=== PATIENT | male | born 1950 | race Caucasian/White ===

== ENCOUNTER 2016-06-18 09:51 | Inpatient (IN) | payer OTHER ==
[~2016-06-18] VITALS: Ht 177.8 cm; Wt 108.0 kg
--- NOTE | ~2016-06-18 | HC ---
[facility] [place] [address] CONSULTATION Name: MARLOMARZENA Michael Room #: 433-I ADM IN ..#: [id number] Admission: 06/18/16 Attend Phys: Alfonzo Melton MD Discharge: Date of : 48 Report #: [id number] THIS REPORT FOR: //name// CC: Spike Melton CHIEF COMPLAINT: Left foot gangrene. HISTORY OF PRESENT ILLNESS: This is a 65-year-old gentleman with a history of prior toe amputations, brought to the emergency room on 06/18/2016, with infection of his left foot and leg. He apparently was also debilitated, unable to stand due to the infection, pain and weakness. PAST MEDICAL HISTORY: Significant for diabetes, peripheral neuropathy, hypertension, osteomyelitis, and left great toe amputation in 2007, left second toe amputation in 2007 as well, and sepsis at that time as well. MEDICATIONS: Glipizide, fenofibrate, lisinopril, and simvastatin. ALLERGIES: None. SOCIAL HISTORY: Significant for alcohol use. PHYSICAL EXAMINATION: GENERAL: Awake, alert, in no apparent distress. VITAL SIGNS: Note today, temperature of 98.5, pulse is 84, respiratory rate is 18, and blood pressure is 120/53. EXTREMITIES: Examination of the patient's left lower extremity notes extensive blistering at the posterior aspect of the patient's leg extending past the mid calf. He has multiple wounds about his hindfoot, from 2 of the wounds. There is a severe malodorous smell. X-rays and MRI reviewed noting osteomyelitis of the heel. IMPRESSION: Gangrene left foot and leg. PLAN: The options were discussed at length with the patient, do not fell there is a good level for a dsipo-atu-xbdg amputation, therefore we will have him scheduled for an bdmpc-dcl-awis amputation to proceed sometime tomorrow when he is medically tuned-up some. Today, his hemoglobin is 6.9 and white count is 6.1, he did have a sedimentation rate of 130. As such, we will schedule him for the iejrz-iwz-raoe amputation to be performed on 06/20/2016. [facility] [address] [place] [address] CONSULTATION Name: MARLOMARZENA P Room #: 433-I ADM IN ..#: [id number] Admission: 06/18/16 Attend Phys: Alfonzo Melton MD Discharge: Date of : 48 Report #: [id number] Thank you for allowing me to participate in the care of this pleasant patient. <ELECTRONICALLY SIGNED> By: Wagner Cunningham MD 06/20/16 1107 0815 0981 Wagner Cunningham MD /nt
--- NOTE | ~2016-06-18 | EKG ---
[address] [address] ELECTROCARDIOGRAM REPORT Name: MARZENA SELLERS Room #: 433-I ADM IN M.R.#: [id number] Admission: 06/18/16 Attend Phys: Alfonzo Melton MD Discharge: Date of : 48 Report #: [id number] THIS REPORT FOR: //name// [facility] Test Date: 2016-06-18 Test Time: 18:04:23 Pat Name: MARZENA SELLERS Department: Room: 433 I Gender: M Inside Sales Consultant: Dileep DOZIER : 1950 Requested By: Torin Krause Order Number: [id number] MD: Justen Esparza Measurements Intervals [place] Rate: 93 P: 34 MT: 169 QRS: -78 QRSD: 118 T: 80 QT: 379 QTc: 472 Interpretive Statements Sinus rhythm Incomplete RBBB and LAFB No previous ECG available for comparison Electronically Signed On 06-19-2016 8:40:13 CDT by Justen Esparza [email or web address] <ELECTRONICALLY SIGNED> By: Justen Esparza MD, [facility] 06/19/16 0840 D: [id number] Justen Esparza MD, FACC /EPI
--- NOTE | ~2016-06-18 | S ---
[facility] [place] [address] SURGICAL PATH RPT PROCEDURE Name: MARZENA SELLERS Room #: 436-P ADM IN M.R.#: [id number] Admission: 06/18/16 Date of : 48 Discharge: Report #: [id number] Path Case #: [id number] PATHOLOGY REPORT COLLECTION DATE: 06/20/2016 RECEIVED DATE: 06/20/2016 SUBMITTING PHYS: Dr. Wagner Cunningham OTHER PHYS: Dr. Alfonzo Jones SPECIMEN(S) RECEIVED: A.Left above knee amputation * * * * * * * * * * * * FINAL DIAGNOSIS: Leg, "left above knee amputation": - Extensive epidermal ulceration with necrotic acute inflammatory exudate forming microabscesses with gangrenous necrosis and with fat necrosis. - A section of the bone reveals acute osteomyelitis, however not present at the black ink. - Section A2 listed as perpendicular section of posterior soft tissue resection margin also reveals focal areas of acute inflammation with microabscess. - Sections from the vessel reveals atherosclerotic narrowing. (KAY:; d/t: 06/26/16) PATHOLOGIST: Eros Chavarria M.D. REPORT ELECTRONICALLY SIGNED BY: Eros Chavarria M.D. DATE/TIME: 06/26/2016 14:32 * * * * * * * * * * * * GROSS PATHOLOGY: The specimen is received fresh, labeled "Skioreleft kylup-pzx-bpxc amputation" and ixnzd-ycz-joph amputation with attached foot, excluding the great toe and second toe. The leg measures 61.3 cm in length and ranges in diameter from 6.2 cm up to 14.5 cm. The attached foot measures 23.7 x 8.2 x 6.2 cm. The chase white skin displays a significant sloughing on the anterior and posterior leg and several necrotic ulcerations. There necrotic soft tissue at the posterior soft tissue margin. The most proximal ulceration measures 2.5 x 1.0 cm. The ulceration is 2.2 cm from the soft tissue resection margin and 11.7 cm from the flat femur resection margin. The second ulceration is on the posterior leg, superior to the ankle, and measures 10 x 7.5 cm. The third ulceration measures 9 x 9.4 cm and involves the plantar heel [place] [address] SURGICAL PATH RPT PROCEDURE Name: MARZENA SELLERS Room #: 436-P ADM IN ..#: [id number] Admission: 06/18/16 Date of : 48 Discharge: Report #: [id number] Path Case #: [id number] aspect of the ankle. The fourth ulceration is on the lateral aspect of the mid foot and measures 5 x 2.5 cm. The fourth ulceration is on the dorsal surface of the distal foot and measures 3.7 x 1.7 cm. There is a well-healed linear scar at the previous toe amputation site. The most distal ulceration is on the lateral plantar surface of the distal foot and measures 1.7 x 1.0 cm. Sectioning through the specimen reveals multifocal edema and significant necrosis of the soft tissue underlying the ulcerations. The bone has a pink to dark red hemorrhagic appearance and sectioning along the vasculature reveals predominantly patent lumens. Section code: A1-neurovascular bundle, A2-perpendicular sections of posterior soft tissue resection margin, A3 through A5-represent sections adjacent to ulcerations from proximal to distal A6-international sales representative sections of bone adjacent to heal, submitted after decal. (DRL; 06/25/2016) CLINICAL HISTORY: Gangrene. INITIAL CPT CODE(S): A; 31151, 97583 Professional services performed by [facility] at [facility] [address], [place] [address] Technical services performed by [facility] at [address] [place] [address], [address], [place] [address]. [facility] [address] [place] [address] PHONE: [phone] DIRECTOR: Hemant Mckeon M.D. * * * END OF REPORT * * *
--- NOTE | ~2016-06-18 | HC ---
[facility] [place] [address] CONSULTATION Name: MARLOMARZENA Michael Room #: 436-P [facility] IN ..#: [id number] Admission: 06/18/16 Attend Phys: Spike Case MD Discharge: 06/30/16 Date of : 48 Report #: [id number] THIS REPORT FOR: //name// CC: Spike Melton DATE OF SERVICE: 06/21/2016 HISTORY OF PRESENT ILLNESS: The patient is a 65-year-old male with history of diabetes mellitus type 2 and bilateral toe amputations, admitted with a left diabetic foot wound with gangrene. He ended up undergoing a left above-knee amputation on 06/20. He has been placed on IV Unasyn. Infectious disease is involved and we are seeing him in rehabilitation medicine consultation. His diabetes is being closely monitored. Hemoglobin A1c 7.9%. We are seeing him in rehabilitation medicine consultation. PAST MEDICAL HISTORY: Includes chronic kidney disease stage 3, hypertension, elevated lipids and reported history of alcoholism, although no withdrawal was noted. MEDICATIONS: Please see the full medication listing. FAMILY HISTORY: Noncontributory. HABITS: As noted above. No history of tobacco abuse. Apparently, he has a history of ETOH usage. SOCIAL HISTORY: He lives in a house alone, ranch style. The home is apparently tight, without a lot of room to accommodate a wheelchair. He does have multiple siblings that live locally, although none are within closer than 20 minutes. Upon my discussion with 2 of his siblings, it does not sound like the patient will be able to stay with any of these siblings temporarily. The patient premorbidly was ambulatory without gait aids and indicated that a few weeks prior to this event, he was not needing to use a cane. REVIEW OF SYSTEMS: Did not offer any current complaints of chest pain, shortness of breath or abdominal discomfort. He does have a history of numbness of both lower extremities. Some left residual limb discomfort, as expected. PHYSICAL EXAMINATION: GENERAL: On examination, an overweight 65-year-old white male, in no obvious distress. VITAL SIGNS: Last recorded temperature is 98.3, pulse 87, respirations 22 and blood pressure 152/86. NEUROLOGIC: The patient is alert, a little confused, but does follow basic 1-step commands. He does have exogenous obesity. Functional range of motion of [facility] [address] [place] [address] CONSULTATION Name: MARZENA SELLERS Room #: 436-P [facility] IN .R.#: [id number] Admission: 06/18/16 Attend Phys: Spike Case MD Discharge: 06/30/16 Date of : 48 Report #: [id number] both upper extremities. Strength is grade 4-/5. DTRs are trace to 1. In the lower extremities, right lower extremity strength is a grade 4- to 3+/5. DTRs are trace to 1. He does have decreased distal sensation in a stocking distribution with decreased proprioception of his toes. He has already had the old right large toe amputation. Left lower extremity reveals the left above-knee amputation, which is dressed. ASSESSMENT: A 65-year-old white male with the following problem list: 1. Left above-knee amputation, 06/20. 2. Diabetic peripheral neuropathy. 3. Functional mobility and ADL deficits. 4. Chronic kidney disease stage 3. 5. Exogenous obesity. 6. Hypertension. 7. Elevated lipids. PLAN: PT and OT will evaluate. In occupational therapy orders are added. There was limited social support, as noted above. We will be glad to follow along with you regarding his rehab therapy needs. <ELECTRONICALLY SIGNED> By: Larry Colón MD 07/03/16 1518 1214 1452 Larry Colón MD /nt
--- NOTE | ~2016-06-18 | HC ---
[facility] [place] [address] CONSULTATION Name: MARZENA SELLERS Michael Room #: 433-I ADM IN .R.#: [id number] Admission: 06/18/16 Attend Phys: Alfonzo Melton MD Discharge: Date of : 48 Report #: [id number] THIS REPORT FOR: //name// CC: Spike Melton REASON FOR CONSULTATION: I was asked to evaluate concerning diabetic left foot infection. HISTORY OF PRESENT ILLNESS: The patient is a 65-year-old with diabetes, several amputations of his toes. He has had chronic wound to his left heel. This has worsened significantly along with increased pain and blistering. Foul odor of the drainage. Along with this, he has been anorexic, presented to the Emergency Room and asked for further assistance with his care. PAST MEDICAL HISTORY: Diabetes, peripheral neuropathy, hypertension, right ankle osteomyelitis, status post debridement, several amputations of his toes. ALLERGIES: None known. MEDICATIONS: As noted on his MAR, now on vancomycin and Zosyn. FAMILY HISTORY: Noncontributory. SOCIAL HISTORY: Nonsmoker, no significant alcohol intake. REVIEW OF SYSTEMS: No cough, sputum, nausea, vomiting or diarrhea. No dysuria or frequency. PHYSICAL EXAMINATION: VITAL SIGNS: Afebrile and hemodynamically stable. GENERAL: He was alert and cooperative. His left upper extremity IV was leaking and there was a fair amount of blood in his bed. He was pale. Appeared sick. HEENT: Unremarkable. CHEST: Clear. HEART: Regular. ABDOMEN: Soft and nontender. There is a foul odor in the room. EXTREMITIES: He had seropurulent drainage from his left foot including tissue necrosis and wounds involving the posterior foot along the lateral aspect as well. He had 2+ edema throughout the left leg. There was erythema extending from the foot up to the lower leg. Sensation was diminished. LABORATORY STUDIES: Hemoglobin 8, white count 11.2 with 26% bands, platelet count was 424,000. Sedimentation 130, sodium 134, potassium 4.1, bicarbonate of 19, creatinine 1.7. X-ray of the foot, large plantar heel wound with extensive soft tissue gas throughout the foot, ankle and distal lower extremity. [address] [address] CONSULTATION Name: MARZENA SELLERS Room #: 433-I ADM IN [facility].#: [id number] Admission: 06/18/16 Attend Phys: Alfonzo Melton MD Discharge: Date of : 48 Report #: [id number] IMPRESSION: A 65-year-old diabetic with gangrene in his left foot. I expect that this will require below-knee amputation. We will ask for surgical opinion. Obtain arterial Dopplers of his lower extremity and electrocardiogram, chest x-ray. Keep him n.p.o. for now, control blood sugars. <ELECTRONICALLY SIGNED> By: Torin Krause MD 06/19/16 1729 1451 2229 Torin Krause MD /adolfo
--- NOTE | ~2016-06-18 | H ---
[facility] [place] [address] HISTORY AND PHYSICAL Name: MARZENA SELLERS Room #: 436-P ADM IN M.R.#: [id number] Admission: 06/18/16 Attend Phys: Alfonzo Melton MD Discharge: Date of : 48 Report #: [id number] THIS REPORT FOR: //name// CC: Spike Melton DATE OF SERVICE: 06/18/2016 The patient is admitted to the hospital on June 18. CHIEF COMPLAINT: Left foot infection. HISTORY OF PRESENT ILLNESS: The patient is a 65-year-old man with history of diabetes mellitus type 2, and history of bilateral toe amputations, who had left foot blister for 1 month. It got progressively worse, that involved the entire foot. The patient came to the emergency room. X-ray was taken, that showed heel wound with gas in the soft tissue. The patient received a dose of vancomycin and Zosyn. The patient reports pain 4-5/10. He has been hemodynamically stable and afebrile. PAST MEDICAL HISTORY: 1. Diabetes mellitus type 2. 2. Hypertension. 3. Dyslipidemia. 4. Chronic kidney disease stage 3. 5. Status post bilateral toe amputations. CURRENT MEDICATIONS: Glipizide 10 mg a day, lisinopril 20 mg a day, simvastatin 20 mg a day, fenofibrate 160 mg a day, and Humalog 12-15 units after meals. FAMILY HISTORY: Reviewed and not pertinent to the patient's current condition. SOCIAL HISTORY: The patient does not smoke cigarettes and does not drink alcohol. REVIEW OF SYSTEMS: As above in HPI section, all others negative. PHYSICAL EXAMINATION: GENERAL: The patient is a middle-aged man who is in no apparent distress. VITAL SIGNS: Blood pressure is 142/75, heart rate is 91, respiration is 18, and temperature is 97.4. HEENT: Pupils are equal. Eye movements are normal. Sclerae are anicteric. NECK: Supple. Thyromegaly is not palpated. The patient has no JVD. He has no carotid bruits. CARDIOVASCULAR: The patient has regular rhythm and rate. He has no murmurs, gallops, or rubs. [facility] [address] [place] [address] HISTORY AND PHYSICAL Name: MARZENA SELLERS Room #: 436-P ADM IN .R.#: [id number] Admission: 06/18/16 Attend Phys: Alfonzo eMlton MD Discharge: Date of : 48 Report #: [id number] RESPIRATORY: Chest moves symmetrically with breathing. The patient has clear respiratory sounds bilaterally. GASTROINTESTINAL: Abdomen is soft, nondistended and nontender. Bowel sounds are normal. The patient has no hepatomegaly or splenomegaly. MUSCULOSKELETAL: Range of motion is normal. The patient has no edema, cyanosis or clubbing. NEUROLOGIC: The patient is alert and oriented x3. His examination is nonfocal. FEET: the patient has right and left toes absent. On the left heel, the patient has a large infected wound. LABS: Basic metabolic profile shows creatinine of 1.7. Random glucose is 307. Lactic acid is 2.3. CPR is 347. On CBC, white count is 11.2, hemoglobin is 8.4, hematocrit is 27.0, platelets 424. Bands 26%. As noted, left foot x-ray showed right heel wound with gas in the soft tissue. ASSESSMENT AND PLAN: 1. Left foot diabetic wound, gas gangrene. The patient is started on vancomycin and Zosyn. Infectious disease specialist and surgeon are already consulted. Consultation is very much appreciated. The patient had MRI of the left foot this morning, as well as arterial Doppler, to rule out peripheral vascular disease. Antibiotics will be continued unchanged for now. The patient will likely need surgical intervention, extent of which will be determined based on imaging studies. 2. Diabetes mellitus type 2. Suspected it is out of control, despite the patient states that blood sugars are in the normal range at home. We are checking hemoglobin A1c. We will treat the patient with basal and bolus insulin regimen. 3. Hypertension. Acceptable control. Lisinopril will be continued unchanged. 4. Anemia, chronic. Hemoglobin is 8.4, which is less than baseline. Suspect anemia of chronic disease, but I am not sure if the patient had a GI workup done. His MCV is 84. We will order stool for guaiac. 5. Chronic kidney disease stage 3, stable. The creatinine is 1.7. IV fluids will be continued, and will be reassessed. We will hold the lisinopril for now. 6. Deep venous thrombosis prophylaxis. He will use subcutaneous Lovenox. <ELECTRONICALLY SIGNED> By: Alfonzo Melton MD 06/25/16 2227 1750 1845 Alfonzo Melton MD /nt
--- NOTE | ~2016-06-18 | O ---
[facility] [place] [address] OPERATIVE REPORT Name: MARZENA SELLERS Room #: 436-P ADM IN M.R.#: [id number] Admission: 06/18/16 Attend Phys: Alfonzo Melton MD Discharge: Date of : 48 Report #: [id number] THIS REPORT FOR: //name// CC: Spike Melton DATE OF SERVICE: 06/20/2016 PREOPERATIVE DIAGNOSIS: Left leg and foot gangrene. POSTOPERATIVE DIAGNOSIS: Left leg and foot gangrene. PROCEDURE: Left above the knee amputation. SURGEON: Wagner Cunningham MD. ANESTHESIA: General. ESTIMATED BLOOD LOSS: 50 mL. DRAINS: One Hemovac drain was placed. COMPLICATIONS: There were no complications. DESCRIPTION OF PROCEDURE: The patient brought to the operating room where he was placed under general anesthesia. Once under adequate general anesthesia, his left lower extremity was prepped and draped in a sterile manner. Extremity was then approached through a fishmouth type incision about the mid to distal shaft of the femur. This was dissected down through the soft tissue to the femoral vessels which were then identified and suture ligated with 0 silk suture. Any bleeding vessels were cauterized. The nerve was then incised as well sharply with a 15 blade. Once complete, the femur was exposed entirely and both muscle flaps were retracted and the femur was transected with an oscillating saw. The distal extremity was then completely removed. The wound was irrigated copiously. Any further bleeding vessels were cauterized. A Hemovac drain was placed to the extremity and subsequently, the wound was irrigated copiously and closed with #1 Vicryl in the deep fascia, 2-0 Vicryl in the subcutaneous tissues and júnior were used for the skin. The wound was dressed with Xeroform, 4 x 4s, and a sterile soft compressive dressing was placed. There were no complications from the procedure. The patient tolerated the procedure well and went to the recovery room without incident. <ELECTRONICALLY SIGNED> By: Wagner Cunningham MD 06/22/16 0820 1112 1141 Wagner Cunningham MD /nt
[2016-06-18 09:53] VITALS: BP 102/54
[2016-06-18 10:32] LABS: HEMOGLOBIN 8.4 gm/dL (14.0-18.0); MCH 26.2 pg (26.0-34.0); MCHC 31.2 g/dL (28.0-37.0); PLATELET COUNT 424 thou/uL (150-400); RBC 3.22 mil/uL (4.50-6.00); RDW 19.1 % (10.5-14.5); WBC 11.2 thou/uL (4.0-11.0)
[2016-06-18 10:33] LABS: MANUAL DIFF YES
[2016-06-18 10:46] LABS: CALCIUM 8.8 mg/dL (8.5-10.1); CREATININE 1.7 mg/dL (0.7-1.3); POTASSIUM 4.1 mmol/L (3.5-5.1)
[2016-06-18 10:51] LABS: ALBUMIN 1.9 g/dL (3.4-5.0); TOTAL PROTEIN 6.8 g/dL (6.4-8.2)
[2016-06-18 11:01] LABS: ABSOLUTE NEUTROPHILS 10.8 thou/uL (1.4-8.2); METAMYELOCYTES 2 %; PLATELET ESTIMATE INCREASED; TOTAL CELL COUNT 100
[2016-06-18 11:02] LABS: ANISOCYTOSIS 1+; BURR CELLS 1+; TOXIC GRANULATION 2+
[2016-06-18 12:40] VITALS: BP 101/59
[2016-06-18 13:23] VITALS: BP 142/75
[2016-06-18] MEDS ORDERED: FENOFIBRATE160 MG PO (14:08)
[2016-06-18] MEDS ORDERED: GLIPIZIDE 10 MG10 MG PO (14:08)
[2016-06-18] MEDS ORDERED: LISINOPRIL20 MG PO (14:09)
[2016-06-18] MEDS ORDERED: ZOCOR20 MG PO (14:10)
[2016-06-18] MEDS ORDERED: HUMALOG100 UNIT/1 SUBQ (17:40)
[2016-06-18 20:20] VITALS: BP 105/53
[2016-06-19 04:00] VITALS: BP 120/53
[2016-06-19 05:12] LABS: GLYCOHEMOGLOBIN (HGB A1C) 7.9 % (4.8-5.6)
[2016-06-19 05:54] LABS: MCV 81.4 fL (80.0-100.0)
[2016-06-19 05:56] LABS: HEMATOCRIT 21.4 % (42.0-52.0); MCH 26.2 pg (26.0-34.0); MCHC 32.2 g/dL (28.0-37.0); RBC 2.63 mil/uL (4.50-6.00); RDW 18.5 % (10.5-14.5); WBC 6.1 thou/uL (4.0-11.0)
[2016-06-19 06:10] LABS: ALBUMIN 1.4 g/dL (3.4-5.0); CALCIUM 7.8 mg/dL (8.5-10.1); CREATININE 1.5 mg/dL (0.7-1.3); TOTAL BILIRUBIN 1.1 mg/dL (<0.1-1.0); TOTAL PROTEIN 4.9 g/dL (6.4-8.2)
[2016-06-19 06:24] LABS: PLATELET COUNT 347 thou/uL (150-400)
[2016-06-19 06:25] LABS: MANUAL DIFF YES
[2016-06-19 06:26] LABS: HEMOGLOBIN 6.9 gm/dL (14.0-18.0)
[2016-06-19 06:59] LABS: ABSOLUTE NEUTROPHILS 5.6 thou/uL (1.4-8.2); ANISOCYTOSIS 2+; MACROCYTES 1+; MICROCYTES 1+; TOTAL CELL COUNT 100
[2016-06-19 07:00] LABS: HYPOCHROMASIA 1+; TOXIC GRANULATION 2+
[2016-06-19 08:00] VITALS: BP 125/59
[2016-06-19 10:57] VITALS: BP 113/54; BP 113/68
[2016-06-19 15:36] VITALS: BP 113/68; BP 118/59
[2016-06-19 19:15] VITALS: BP 109/61
[2016-06-20 05:23] LABS: HEMATOCRIT 26.3 % (42.0-52.0); HEMOGLOBIN 8.7 gm/dL (14.0-18.0); MCH 27.1 pg (26.0-34.0); MCHC 33.2 g/dL (28.0-37.0); MCV 81.5 fL (80.0-100.0); PLATELET COUNT 299 thou/uL (150-400); RBC 3.22 mil/uL (4.50-6.00); RDW 18.3 % (10.5-14.5)
[2016-06-20 05:40] LABS: CALCIUM 7.9 mg/dL (8.5-10.1); CREATININE 1.6 mg/dL (0.7-1.3); POTASSIUM 3.4 mmol/L (3.5-5.1)
[2016-06-20 05:50] LABS: MANUAL DIFF YES
[2016-06-20 08:09] LABS: ABSOLUTE NEUTROPHILS 6.2 thou/uL (1.4-8.2); TOTAL CELL COUNT 100
[2016-06-20 08:11] LABS: ANISOCYTOSIS 1+; HYPOCHROMASIA 1+; LARGE PLATELETS FEW; OVALOCYTES FEW; POIKILOCYTOSIS SLIGHT
[2016-06-20 08:13] LABS: TOXIC GRANULATION SLIGHT
[2016-06-20 08:38] VITALS: BP 108/56
[2016-06-20 09:30] VITALS: BP 124/66
[2016-06-20 14:00] VITALS: BP 135/77
[2016-06-20 16:13] VITALS: BP 143/69
[2016-06-20 19:50] VITALS: BP 135/63
[2016-06-20 23:30] VITALS: BP 114/56
[2016-06-21 03:30] VITALS: BP 142/74
[2016-06-21 05:24] LABS: HEMATOCRIT 30.8 % (42.0-52.0); HEMOGLOBIN 10.4 gm/dL (14.0-18.0); MCH 27.8 pg (26.0-34.0); MCHC 33.7 g/dL (28.0-37.0); MCV 82.4 fL (80.0-100.0); PLATELET COUNT 316 thou/uL (150-400); RBC 3.74 mil/uL (4.50-6.00); RDW 17.6 % (10.5-14.5); WBC 9.3 thou/uL (4.0-11.0)
[2016-06-21 05:29] LABS: MANUAL DIFF YES
[2016-06-21 05:34] LABS: CALCIUM 7.6 mg/dL (8.5-10.1); CREATININE 1.2 mg/dL (0.7-1.3); POTASSIUM 3.5 mmol/L (3.5-5.1)
[2016-06-21 08:00] VITALS: BP 152/86
[2016-06-21 08:11] LABS: ABSOLUTE NEUTROPHILS 7.9 thou/uL (1.4-8.2); ATYPICAL LYMPHS 1 %; TOTAL CELL COUNT 100
[2016-06-21 08:13] LABS: ANISOCYTOSIS 1+
[2016-06-21 12:08] VITALS: BP 144/78
[2016-06-21 16:12] VITALS: BP 131/80
[2016-06-21 20:30] VITALS: BP 137/77
[2016-06-22 04:00] VITALS: BP 147/78
[2016-06-22 06:29] LABS: HEMATOCRIT 29.8 % (42.0-52.0); HEMOGLOBIN 9.9 gm/dL (14.0-18.0); MCH 27.7 pg (26.0-34.0); MCHC 33.2 g/dL (28.0-37.0); MCV 83.3 fL (80.0-100.0); PLATELET COUNT 270 thou/uL (150-400); RBC 3.58 mil/uL (4.50-6.00); RDW 18.4 % (10.5-14.5)
[2016-06-22 06:39] LABS: MANUAL DIFF YES
[2016-06-22 06:43] LABS: CALCIUM 7.5 mg/dL (8.5-10.1); CREATININE 0.9 mg/dL (0.7-1.3); POTASSIUM 3.3 mmol/L (3.5-5.1)
[2016-06-22 07:55] VITALS: BP 176/86
[2016-06-22 08:56] LABS: ABSOLUTE NEUTROPHILS 8.3 thou/uL (1.4-8.2); ANISOCYTOSIS 1+; PLATELET ESTIMATE NORMAL; TOTAL CELL COUNT 100
[2016-06-22 10:40] VITALS: BP 136/59
[2016-06-22 15:26] VITALS: BP 118/61
[2016-06-22 19:34] VITALS: BP 133/76
[2016-06-23 04:24] VITALS: BP 135/76
[2016-06-23 12:00] VITALS: BP 144/76; BP 154/82
[2016-06-23 16:00] VITALS: BP 155/93
[2016-06-23 19:54] VITALS: BP 137/73
[2016-06-24 04:14] VITALS: BP 145/80
[2016-06-24 04:28] LABS: HEMATOCRIT 26.5 % (42.0-52.0); HEMOGLOBIN 8.8 gm/dL (14.0-18.0); MCH 27.6 pg (26.0-34.0); MCHC 33.2 g/dL (28.0-37.0); RBC 3.19 mil/uL (4.50-6.00); RDW 17.5 % (10.5-14.5); WBC 5.9 thou/uL (4.0-11.0)
[2016-06-24 04:37] LABS: CALCIUM 7.6 mg/dL (8.5-10.1); CREATININE 0.9 mg/dL (0.7-1.3); POTASSIUM 3.6 mmol/L (3.5-5.1)
[2016-06-24 08:00] VITALS: BP 145/66
[2016-06-24 12:00] VITALS: BP 141/66
[2016-06-24 19:28] VITALS: BP 141/72
[2016-06-25 03:40] VITALS: BP 146/77
[2016-06-25 05:45] LABS: HEMATOCRIT 27.3 % (42.0-52.0); HEMOGLOBIN 9.1 gm/dL (14.0-18.0); MCH 27.4 pg (26.0-34.0); MCHC 33.2 g/dL (28.0-37.0); MCV 82.5 fL (80.0-100.0); RBC 3.3 mil/uL (4.50-6.00); RDW 17.8 % (10.5-14.5); WBC 7.1 thou/uL (4.0-11.0)
[2016-06-25 06:02] LABS: CALCIUM 7.8 mg/dL (8.5-10.1); CREATININE 0.8 mg/dL (0.7-1.3); POTASSIUM 3.4 mmol/L (3.5-5.1)
[2016-06-25 08:00] VITALS: BP 139/67
[2016-06-25 12:00] VITALS: BP 129/61
[2016-06-25 16:00] VITALS: BP 132/59
[2016-06-25 19:30] VITALS: BP 127/55
[2016-06-26 03:06] VITALS: BP 134/59
[2016-06-26 05:45] LABS: HEMATOCRIT 26.6 % (42.0-52.0); HEMOGLOBIN 8.9 gm/dL (14.0-18.0); MCH 27.4 pg (26.0-34.0); MCHC 33.3 g/dL (28.0-37.0); MCV 82.1 fL (80.0-100.0); RBC 3.24 mil/uL (4.50-6.00); RDW 17.5 % (10.5-14.5); WBC 8.2 thou/uL (4.0-11.0)
[2016-06-26 06:08] LABS: CALCIUM 8.2 mg/dL (8.5-10.1); CREATININE 0.9 mg/dL (0.7-1.3); POTASSIUM 3.6 mmol/L (3.5-5.1)
[2016-06-26 07:14] VITALS: BP 132/64
[2016-06-26 15:25] VITALS: BP 120/55
[2016-06-26 19:18] VITALS: BP 139/65
[2016-06-27 04:05] VITALS: BP 135/66
[2016-06-27 08:16] VITALS: BP 133/60
[2016-06-27 12:24] VITALS: BP 116/56
[2016-06-27 15:16] VITALS: BP 117/60
[2016-06-27 19:10] VITALS: BP 117/71
[2016-06-28 04:04] VITALS: BP 141/70
[2016-06-28 05:56] LABS: HEMATOCRIT 26.4 % (42.0-52.0); HEMOGLOBIN 8.6 gm/dL (14.0-18.0); MCH 27.4 pg (26.0-34.0); MCHC 32.8 g/dL (28.0-37.0); MCV 83.7 fL (80.0-100.0); RBC 3.15 mil/uL (4.50-6.00); RDW 17.5 % (10.5-14.5); WBC 9.8 thou/uL (4.0-11.0)
[2016-06-28 06:19] LABS: CALCIUM 8.5 mg/dL (8.5-10.1); CREATININE 0.8 mg/dL (0.7-1.3); POTASSIUM 3.9 mmol/L (3.5-5.1)
[2016-06-28 08:00] VITALS: BP 148/77
[2016-06-28 16:00] VITALS: BP 120/58
[2016-06-28 20:41] VITALS: BP 111/53
[2016-06-29 03:55] VITALS: BP 113/52
[2016-06-29 08:00] VITALS: BP 115/61
[2016-06-29] MEDS ORDERED: ROCEPHIN 11 GM/1001 IV (12:38)
[2016-06-29] MEDS ORDERED: METRONIDAZOLE500 M5 IV (12:41)
[2016-06-29] MEDS ORDERED: AMLODIPINE BESYL5 M1 PO (14:13)
[2016-06-29] MEDS ORDERED: HYDROCODON-ACE1 EAC7 PO (14:14)
[2016-06-29] MEDS ORDERED: ACETAMINOPHEN325 M1 PO (14:15)
[2016-06-29] MEDS ORDERED: ACIDOPHILUS1 EAC4 PO (14:16)
[2016-06-29] MEDS ORDERED: LANTUS100 UNIT/M SUBQ (14:17)
[2016-06-29] MEDS ORDERED: HUMALOG100 UNIT/1 SUBQ (14:17)
[2016-06-29 15:58] VITALS: BP 114/59
[2016-06-30 06:02] VITALS: BP 136/64
[2016-06-30 07:19] VITALS: BP 128/60
== END 2016-06-30 10:41 | DRG 853 ==
LOC: ER 09:51 → 4S 11:15 → EROBS 11:15 → 4S 12:41
PROVIDERS: Hospitalist; Internal Medicine Endocrinology, Diabetes & Metabolism; Nurse Practitioner Gerontology; Orthopaedic Surgery Foot and Ankle Surgery; Physician Assistant
PROC: 30233N1 Transfusion of Nonautologous Red Blood Cells into Peripheral Vein, Percutaneous Approach (ICD-10-PCS; 2016-06-19)
PROC: 0Y6D0Z3 Detachment at Left Upper Leg, Low, Open Approach (ICD-10-PCS; principal; 2016-06-20)
PROC: 05H533Z Insertion of Infusion Device into Right Subclavian Vein, Percutaneous Approach (ICD-10-PCS; 2016-06-29)
DX: A41.9 Sepsis, unspecified organism (principal); E43 Unspecified severe protein-calorie malnutrition; E11.52 Type 2 diabetes mellitus with diabetic peripheral angiopathy with gangrene; M86.8X7 Other osteomyelitis, ankle and foot; K52.1 Toxic gastroenteritis and colitis; E11.42 Type 2 diabetes mellitus with diabetic polyneuropathy; I12.9 Hypertensive chronic kidney disease with stage 1 through stage 4 chronic kidney disease, or unspecified chronic kidney disease; N18.3 Chronic kidney disease, stage 3 (moderate); E66.09 Other obesity due to excess calories; D64.9 Anemia, unspecified; E11.69 Type 2 diabetes mellitus with other specified complication; R53.81 Other malaise; E78.5 Hyperlipidemia, unspecified; E11.22 Type 2 diabetes mellitus with diabetic chronic kidney disease; T36.95XA Adverse effect of unspecified systemic antibiotic, initial encounter; Y92.89 Other specified places as the place of occurrence of the external cause; Z68.34 Body mass index [BMI] 34.0-34.9, adult
CPT/HCPCS: 10100; 27001; 50010; 50101; 50386; 51412; 53000; 56524; 56525; 57091; 62110; 62900; 70005

== ENCOUNTER 2019-12-06 11:57 | Inpatient (IN) | payer MEDICARE ==
[~2019-12-06] VITALS: Ht 177.8 cm; Wt 99.8 kg
--- NOTE | ~2019-12-06 | HC ---
[facility] [place] [address] CONSULTATION Name: MARZENA SELLERS Room #: 442-P [facility] IN M.R.#: [id number] Admission: 12/06/19 Attend Phys: Cornell Filiberto Alexandrea Discharge: 12/14/19 Date of : 48 Report #: [id number] THIS REPORT FOR: cc: FAM - No family physician/PCP FAM - No family physician/PCP Mino Morrow MD ~ DATE OF SERVICE: 12/07/2019 CHIEF COMPLAINT: Lower extremity and sacral ulceration. HISTORY OF PRESENT ILLNESS: This is a 68-year-old male patient who was admitted with hypoglycemia. He is noted to have multiple ulcerations and I have been asked to see him with regard to wound care. PAST MEDICAL HISTORY: Positive for history of type 2 diabetes mellitus, peripheral neuropathy, hypertension, history of osteomyelitis of the right ankle, left foot great toe amputation in the past and a history of previous sepsis. CURRENT MEDICATIONS: Include fenofibrate, simvastatin, Rocephin, metronidazole, Norvasc, hydrocodone, lactobacillus acidophilus. SOCIAL HISTORY: The patient denies tobacco use. He drinks alcohol on special occasions. No drug use. FAMILY HISTORY: Noncontributory. REVIEW OF SYSTEMS: CONSTITUTIONAL: The patient denies fever, chills or weight loss. He has had a decreased appetite. EYES: The patient denies visual changes, redness, or drainage. ENT: The patient denies earache, nasal drainage, sore throat. PULMONARY: The patient denies cough or shortness of breath. CARDIOVASCULAR: The patient denies chest pain, palpitations or diaphoresis. GASTROINTESTINAL: The patient does have nausea. Denies vomiting or diarrhea. GENITOURINARY: Denies frequency or urgency of urination. Denies dysuria. ORTHOPEDIC: The patient does have multiple ulcerations. Denies pain or swelling of the extremities. Other systems in a 14-point review of systems are negative. ALLERGIES: No known drug allergies. PHYSICAL EXAMINATION: VITAL SIGNS: At this time include temperature 36.9, pulse 94, respiratory rate 20, blood pressure 83/52. GENERAL: This is a chronically ill and thin-appearing male patient who appears [facility] [address] [place] [address] CONSULTATION Name: MARZENA SELLERS Michael Room #: 442-P DIS IN M.R.#: [id number] Admission: 12/06/19 Attend Phys: Cornell Lechuga Discharge: 12/14/19 Date of : 48 Report #: [id number] to be in no obvious distress. HEENT: Examination of head normocephalic. Nose and throat are clear. NECK: Supple. LUNGS: Diminished. HEART: Regular rhythm. ABDOMEN: Soft. Bowel sounds present. EXTREMITIES: Examination of the skin demonstrates what appears to be a stage 3 pressure ulceration of the right buttock and sacral region. These are relatively superficial. He has a prior left above-knee amputation. He has ulcerations to the right first toe and the right lateral ankle. NEUROLOGIC: The patient is alert. He does answer some questions. LABORATORY STUDIES: Include sodium 137, potassium 5.1, chloride 105, CO2 of 12, BUN 169, creatinine 5.4, glucose 32, calcium is 9.3, albumin is 2.3. White blood cell count 6.9 with a hemoglobin of 9.0. CLINICAL IMPRESSION: Includes: 1. Diabetic ulceration, right lateral ankle and right first toe plantar surface. 2. Stage 3 pressure ulceration of the right buttock and sacrum. 3. History of prior above-knee amputation. 4. Type 2 diabetes mellitus. 5. Moderate to severe protein-calorie malnutrition. 6. Debility. RECOMMENDATIONS: At this point in time, we will recommend Calazime to the buttocks and sacral region b.i.d. and p.r.n. He will need low air loss mattress and q. 2 hour turning and positioning. We will recommend a foam dressing to the right lateral ankle ulcer Saturday, Saturday and Saturday and Betadine to the ulcers of the right great toe. He will need to maximize his all protein intake for benefits of wound healing. Continue with physical and occupational therapy as tolerated and continuation of current medications. I appreciate being asked to see the patient in consultation. By: [id number] Mino Morrow MD /adolfo
[~2019-12-06 11:57] MED LIST: ACETAMINOPHEN325 M1 PO; ACIDOPHILUS1 EAC4 PO; AMLODIPINE BESYL5 M1 PO; FENOFIBRATE160 MG PO; GLIPIZIDE 10 MG10 MG PO; HUMALOG100 UNIT/1 SUBQ; HYDROCODON-ACE1 EAC7 PO; LANTUS100 UNIT/M SUBQ; LISINOPRIL20 MG PO; METRONIDAZOLE500 M5 IV; ROCEPHIN 11 GM/1001 IV; ZOCOR20 MG PO
[2019-12-06 11:59] VITALS: BP 103/61
[2019-12-06 13:05] LABS: HEMATOCRIT 29.9 % (42.0-52.0); HEMOGLOBIN 9.8 gm/dL (14.0-18.0); MCH 29.4 pg (26.0-34.0); MCHC 32.8 g/dL (28.0-37.0); MCV 89.5 fL (80.0-100.0); RBC 3.34 mil/uL (4.50-6.00); WBC 9.5 thou/uL (4.0-11.0)
[2019-12-06 13:18] LABS: CALCIUM 9.3 mg/dL (8.5-10.1); CREATININE 5.4 mg/dL (0.7-1.3); POTASSIUM 5.1 mmol/L (3.5-5.1)
[2019-12-06 15:36] VITALS: BP 122/73
[2019-12-06 16:18] VITALS: BP 98/54
--- NOTE | 2019-12-06 17:11 | NUR ---
PT ARRIVED ON UNIT, AOX4, VSS. PT IS NONAMBULATORY, FALL PRECAUTIONS IN PLACE. PT HAS RIGHT ABOVE KNEE AMPUTATION. LEFT LEG HAS SCABS AND DISCOLORATION BUT NO OPEN WOUNDS. PT REPORTS MULTIPLE SKIN BREAKDOWN ON HIS BOTTOM. PT AGREED TO LET NURSE TAKE PICTURES OF HIS BUTTOCKS AFTER HE EATS DINNER. PT HAD BS 413. PT IV ON RIGHT HAND, IV FLUIDS ARE RUNNING. PT VERBALIZED UNDERSTANDING OF CALL LIGHT. WILL CONTINUE TO MONITOR.
[2019-12-06 20:40] VITALS: BP 109/55
[2019-12-07 04:40] VITALS: BP 83/59
--- NOTE | 2019-12-07 05:32 | NUR ---
PT LYING IN BED. TYLENOL PROVIDING PAIN RELIEF. REPOSITIONED FOR COMFORT. RESTING COMFORTABLY. NO NEEDS VOICED. CALL LIGHT WITHIN REACH. FREQUENT OBSERVATION.
[2019-12-07 06:06] LABS: GLYCOHEMOGLOBIN (HGB A1C) 8.2 % (4.8-5.6)
[2019-12-07 06:09] LABS: MCH 30.1 pg (26.0-34.0); MCHC 33.3 g/dL (28.0-37.0); MCV 90.4 fL (80.0-100.0); RBC 2.99 mil/uL (4.50-6.00); RDW 16.5 % (10.5-14.5); WBC 6.9 thou/uL (4.0-11.0)
[2019-12-07 06:21] LABS: ALBUMIN 2.9 g/dL (3.4-5.0); CALCIUM 8.3 mg/dL (8.5-10.1); CREATININE 5.4 mg/dL (0.7-1.3); PHOSPHORUS 6.9 mg/dL (2.5-4.9); POTASSIUM 4.9 mmol/L (3.5-5.1)
[2019-12-07 08:18] VITALS: BP 83/52
--- NOTE | 2019-12-07 10:49 | NUR ---
Assess due to RD consult. Pt admit with acute on chronic kidney injury and skin breakdown, multiple areas to bottom. Renal and wound care consults pending. Hx AKA, DM, CKD. Wts have been stable. pt with minimal interest in conversation, very short, one word answers. Appetite stated as "okay" and shook head no when asked about trying any supplements or obtaining food preferences. Add carb control to current renal diet order. Low nutrition risk
--- NOTE | 2019-12-07 16:35 | NUR ---
ASSESSMENT: CM REVIEWED CHART AND MET WITH PATIENT. PT IS ADMITTED DUE TO HYPOGLYCEMIA. PT REPORTS THAT HE LIVES IN A HOME ALONE. PT REPORTS NO STEPS TO ENTER OR ONCE INSIDE. PT STATES HE HAS AN ELECTRIC SCOOTER HE USES AT HOME AND IS NORMALLY ABLE TO TRANSFER HIMSELF BUT WAS UNABLE TO THE PAST COUPLE OF DAYS. PT REPORTS THAT HE HAS HAD HH IN THE PAST BUT UNSURE THE AGENCY. PT HAS BEEN TO [facility] IN THE PAST. PT REPORTS THAT HE HAS A SHOWER BENCH. PT STATES HE IS NORMALLY INDEPENDENT WITH ADLS. CM SPOKE WITH ATTENDING WHO REPORTS PATIENT WILL LIKELY NEED HH. PHYSICAL THERAPY IS ORDERED AND CURRENTLY AWAITING EVALS. PT REPORTS HE IS AGREEABLE WITH HH IF NEEDED AND HAS NO PREFERENCE OF AGENCY. CM WILL AWAIT FURTHER INPUT FROM PHYSICAL THERAPY.
[2019-12-07 19:44] VITALS: BP 106/59
[2019-12-08 02:50] VITALS: BP 76/49
--- NOTE | 2019-12-08 03:37 | NUR ---
ASSESSED AT START OF SHIFT PT A&OX3. IV INTACT AND FLUIDS INFUSING. PT REPOSITIONED FOR COMFORT. BSG CHECKED WITH INSULIN COVERAGE. FOLLEY INTACT AND DRAINING. UA COLLECTED. FALL PREC IN PLACE AND CALL LIGHT IN REACH WILL CONT TO MONITOR.
[2019-12-08 05:36] LABS: PROT/CREAT RATIO 1.1; URINE CREATININE-RANDOM* 48.8 mg/dL; URINE PROTEIN-RANDOM* 54.9 mg/dL (<11.9)
[2019-12-08 06:15] LABS: ALBUMIN 2.7 g/dL (3.4-5.0); CALCIUM 8.2 mg/dL (8.5-10.1); PHOSPHORUS 6.1 mg/dL (2.5-4.9); POTASSIUM 4.4 mmol/L (3.5-5.1)
[2019-12-08 06:25] LABS: CREATININE 3.9 mg/dL (0.7-1.3)
[2019-12-08 10:49] VITALS: BP 81/52
--- NOTE | 2019-12-08 14:13 | NUR ---
ON-GOING ASSESSMENT: CM REVIEWED CHART. PT IS SLOWLY PROGRESSING TOWARDS DISCHARGE. PT HAS VARIANCED PATIENT UNTIL THIS PM. CM WILL CONTINUE TO FOLLOW TO ASSIST WITH DISCHARGE NEEDS.
[2019-12-08 18:18] VITALS: BP 101/64
--- NOTE | 2019-12-08 19:00 | NUR ---
PT IS A&OX4, BEDREST, WITH A HALLMAN. PT IS ON CARB CONTROL DIET AND TAKES MEDS APPROPRIATELY. PT HAS A POOR APPETITE. WOUND CARE IS WITH ALEXEY AND ON RA. FALL PRECAUTIONS ARE IN PLACE, WILL CONTINUE TO MONITOR.
[2019-12-08 19:02] VITALS: BP 90/57
--- NOTE | 2019-12-08 20:12 | NUR ---
NURSING ASSESSMENT AMENDED BY THIS RN, NURSING NOTE DONE BY MIL/TRELL. I AGREE WITH NURSING NOTE DONE BY MIL/TRELL.
--- NOTE | 2019-12-09 03:27 | NUR ---
ASSESSED AT START OF SHIFT. BSG CHECKED WITH INSULIN COVERAGE. IV INTACT WITH FLUIDS INFUSING. WOUND ON FOOT OPEN TO AIR WITH BETADINE. PT REPOSITIONED FOR COMFORT. LFT BKA. FOLLEY INTACT FOR RETENSION. FALL PREC IN PLACE AND CALL LIGHT IN REACH WILL CONT WITH POC TILL EOS.
[2019-12-09 04:01] VITALS: BP 115/57
[2019-12-09 06:44] LABS: ALBUMIN 2.7 g/dL (3.4-5.0); CALCIUM 8.1 mg/dL (8.5-10.1); CREATININE 3.5 mg/dL (0.7-1.3); PHOSPHORUS 4.7 mg/dL (2.5-4.9); POTASSIUM 3.8 mmol/L (3.5-5.1)
[2019-12-09 08:33] VITALS: BP 115/70
--- NOTE | 2019-12-09 10:07 | NUR ---
on-going assessment: CM REVIEWED CHART THERAPY IS RECOMMEDNING SNF. CM DISCUSSED WITH PATIENT AND HE IS AGREEABLE AND WANTED A REFERRAL SENT TO [facility]. CM FAXED REFERRAL. CM NOTIFIED ATTENDING THAT A COVID TEST WILL NEED TO BE ORDERED. CM WILL CONTINUE TO FOLLOW TO ASSIST NEEDED.
--- NOTE | 2019-12-09 16:08 | NUR ---
PT ALERT AND ORIENTED TIMES FOUR. VSS, IVF INFUSING PER ORDER, HALLMAN TO DD PT DENIES PAIN/SOA. PT C/O NAUSEA, BUT DID NOT WANT ANY MEDICATION AT THIS TIME. PT TOLERATES MEDS. EATS SMALL PORTIONS OF MEALS. PT SISTER AT BEDSIDE THIS AFTERNOON. PT PROGRESSING TOWRADS POC GOALS.
[2019-12-09 16:45] VITALS: BP 124/77
[2019-12-09 19:46] VITALS: BP 140/77
--- NOTE | 2019-12-10 03:02 | NUR ---
ASSESSED AT START OF SHIFT. PT DENIES N/V. BSG CHECKED WITH INSULIN COVERAGE. NIGHT TIME SNACKS PROVIDED. PT REPOSITIONED FOR COMFORT. FOLLEY INTACT FOR RETENSION. IV IN PLACE WITH IVF. PT RESTING WELL. FALL PREC IN PLACE AND CALL LIGHT IN REACH WILL CONT WITH POC TILL EOS.
[2019-12-10 05:56] VITALS: BP 130/65
[2019-12-10 06:18] LABS: ALBUMIN 2.5 g/dL (3.4-5.0); CALCIUM 8.1 mg/dL (8.5-10.1); PHOSPHORUS 3.3 mg/dL (2.5-4.9); POTASSIUM 3.4 mmol/L (3.5-5.1)
[2019-12-10 06:19] LABS: CREATININE 2.3 mg/dL (0.7-1.3)
[2019-12-10 07:40] VITALS: BP 146/67
--- NOTE | 2019-12-10 14:11 | NUR ---
ON-GOING ASSESSMENT: CM REVIEWED CHART AND SPOKE WITH ATTENDING WHO STATES LIKELY STABLE FOR DISCHARGE TO SNF TOMORROW. CM CONTACTED [facility] TO UPDATE AND FAXED UPDATED CLINICAL AND THEY HAVE STARTED THE AUTH PROCESS. CM ALSO FAXED THE NEGATIVE COVID TEST TO [facility]. CM WILL CONTINUE TO FOLLOW TO ASSIST NEEDED.
[2019-12-10 15:35] VITALS: BP 143/85
--- NOTE | 2019-12-10 17:04 | NUR ---
Assumed care of pt. at 0700. IV clotted off in the morning an was removed and replaced. Pt. complained of internal pain near the bladder from the catheter. Pain decreased after Tylenol given. No other complaints from pt. Fall precautions in place.
[2019-12-10 18:54] VITALS: BP 119/70
[2019-12-11 03:51] VITALS: BP 131/74
--- NOTE | 2019-12-11 06:08 | NUR ---
RESUMED PT CARE AT 1900.PT DENIED PAIN SO FAR.NO BM THIS SHIFT.BG MONITORED,NO SS NEEDED.PT REPOSITIONED WHILE IN BED.WOUND CARE DONE BY THE PREVIOS SHIFT.PT RESTING ON HIS BED AT THIS TIME.CALL LIGHT WITHIN REACH.
[2019-12-11 07:40] VITALS: BP 123/70
[2019-12-11 09:13] LABS: ALBUMIN 2.5 g/dL (3.4-5.0); CREATININE 2.5 mg/dL (0.7-1.3); PHOSPHORUS 2.9 mg/dL (2.5-4.9)
[2019-12-11] MEDS ORDERED: MIDODRINE HCL 55 M1 PO (09:17)
[2019-12-11] MEDS ORDERED: FINASTERIDE5 MG PO (09:19)
[2019-12-11] MEDS ORDERED: LANTUS SUBQ (09:19)
[2019-12-11] MEDS ORDERED: HUMALOG100 UNIT/1 SUBQ (09:19)
--- NOTE | 2019-12-11 15:18 | NUR ---
Assumed care of pt. at 0700. Pt. is calm and cooperative. Safety Tech requested removal of catheter and bladder scan later in the day. Fall percautions in place.
[2019-12-11 16:30] VITALS: BP 135/76
--- NOTE | 2019-12-11 16:55 | NUR ---
on-going assessment: CM REVIEWED CHART AND SPOKE WITH [facility] IN ADMISSIONS MULTIUPLE TIMES AND NOT UPDATE ON AUTH. CM REACHED OUT TO [employer] WHO REPORTS THEY MAY POSSIBLY GIVEN AUTH TOMORROW ON SATURDAY. CM REQUESTED IF THEY GIVE AUTH TO CALL ERIBERTO IN ADMISSIONS AT [facility] [phone] AND INCLUDE AN EMAIL TO SCR[employer]AKER. ERIBERTO WILL THEN CONTACT THE NURSING UNIT ON 4S TO NOTIFY THEM. CM FAXED DISCHARGE ORDERS AND NEGATIVE COVID TEST TO [facility]ASE AUTH IS OBTAINED OVER THE WEEKEND. ERIBERTO AT [facility] [phone] WILL HELP COORDINATE DISCHARGE/TRANSPORTATION. CHART COPY WILL NEED TO BE SENT WITH PATIENT.
[2019-12-11 21:39] VITALS: BP 128/71
--- NOTE | 2019-12-12 03:51 | NUR ---
PT AOX4 WITH INTERMITTENT FORGETFULNESS. PT REPORTS 5/10 PAIN IN LOWER BACK. PT RECEIVING PRN PO APAP Q4HR. PT DENIES SOB WHILE ON ROOM AIR. PT TOLERATING PO INTAKE OF FLUIDS AND CARB CONTROLLED DIET. PT ASSESSED WITH BLOOD GLUCOSE OF 67, JUICE GIVEN. PT REASSESSED WITH BLOOD GLUCOSE OF 75. PT CONTINUES RESTING IN BED THROUGHOUT SHIFT, URINAL PROVIDED. FREQUENT REPOSITIONING ENCOURAGED. PT NOTED TO SHIFT INDEPENDENTLY WHILE IN BED, PREFERS TO BE ON RIGHT SIDE DUE TO COMFORT. WOUNDS TO RIGHT FOOT AND TOES WITH BETADINE, REMAIN OPEN TO AIR. WOUND TO SACRUM NOT VISUALIZED DUE TO PT POSITION PREFERENCE FOR COMFORT. PT ENCOURAGED TO NOTIFY STAFF FOR ALL NEEDS, CALL LIGHT WITHIN REACH, BED IN LOWEST POSITION, BED ALARM ON ON, FREQUENT MONITORING WILL CONTINUE.
[2019-12-12 06:47] LABS: ALBUMIN 2.3 g/dL (3.4-5.0); CALCIUM 7.7 mg/dL (8.5-10.1); CREATININE 2.5 mg/dL (0.7-1.3); PHOSPHORUS 3.2 mg/dL (2.5-4.9); POTASSIUM 3.8 mmol/L (3.5-5.1)
--- NOTE | 2019-12-12 10:30 | NUR ---
discussed during prime time, tiffany called from [facility] and asked bedside nurse to fax updated pt/ot/st notes to t because needs update. tiffany from [facility] to call 4s when get auth for skilled.
[2019-12-12 17:40] VITALS: BP 131/59
--- NOTE | 2019-12-12 18:12 | NUR ---
Assumed care of pt. at 0700. Pt. calm and cooperative. Pt. complains of not being able to urinate but feeling full in the bladder. Physician alerted, lloyd cath orders given. Bladder scan showed 502mL in bladder. Lloyd cath inserted. Pt. blood sugars remained above hypoglycemic levels throughout the day. [facility] admission coordinator communicated that [facility] needed PT/OT notes from recent days for approval. Documents faxed to [facility]. Fall percautions in place.
--- NOTE | 2019-12-13 02:01 | NUR ---
PATIENT SLEEPING WELL, TOOK TYLENOL AND AMBIEN AT HS TO GET A GOOD NIGHTS REST. BLOOD SUGAR OF 191 AT HS, PATIENT DECLINED HIS 3 UNITS OF SLIDING SCALE INSULIN SINCE HE HAS RECENTLY RUN UNCOMFORTABLY LOW AND DOES NOT WANT A SNACK TONIGHT. VIJI VASQUEZ DD
[2019-12-13 05:48] VITALS: BP 117/57
[2019-12-13 06:43] LABS: ALBUMIN 2.1 g/dL (3.4-5.0); CALCIUM 7.7 mg/dL (8.5-10.1); CREATININE 2.3 mg/dL (0.7-1.3); PHOSPHORUS 3.7 mg/dL (2.5-4.9); POTASSIUM 3.8 mmol/L (3.5-5.1)
[2019-12-13 09:10] VITALS: BP 137/75
[2019-12-13 16:15] VITALS: BP 130/71
--- NOTE | 2019-12-13 18:41 | NUR ---
APTIENT HAS RESTED IN ROOM THROGH THE DAY. RESPIRATION ARE EVEN AND NON LABORED. PLEASANT WITH CARES.
[2019-12-13 19:49] VITALS: BP 131/64
--- NOTE | 2019-12-14 04:25 | NUR ---
PT C/O PAIN ON HIS BACK,MANAGED WITH MED.PT CONT ON IVF.PT'S BUTTOCK RED WITH A SMALL OPEN AREA,BARRIER CREAM APPLIED PATIENT RESOURCE SPECIALIST.BG MONITORED,NO COVERAGE NEEDED.PT SLEEPING ON HIS BED AT THIS TIME.PT REPOSITIONED WHILE IN BED.BETADINE TO HIS R GREAT TOE AND HEEL.CALL LIGHT WITHIN REACH.
[2019-12-14 04:30] VITALS: BP 140/78
[2019-12-14 06:01] VITALS: BP 144/83
--- NOTE | 2019-12-14 09:28 | NUR ---
ASSUMED PT AT 0715. PT IS A&OX4, VSS, AND PT HAS A HALLMAN, CONTINENT TO BOWEL. PT WILL BE DISCHARGED THIS MORNING TO THE FACILITY. PT WOUNDS ON RIGHT BUTTOCKS WERE CLEANED WITH SALINE AND DRESSED WITH BARRIER CREAM. PT WOUND ON RIGHT FOOT WAS CLEANED SALINE AND DRESSED WITH BETADINE SOLUTION. FALL PRECAUTIONS IN PLACE. WILL CONTINUE TO MONITOR.
[2019-12-14 09:51] VITALS: BP 133/75
--- NOTE | 2019-12-14 10:05 | NUR ---
LATE ENTRY FORM 12/13/19: CALLED IN FOR Saturday12/13/19 PRIME TIME ROUNDS AND SPOKE WITH RN WHO STATES UPDATED CLINICAL WAS FAXED YESTERDAY PER [facility] ADMISSIONS REQUEST. SPOKE WITH ERIBERTO IN ADMISSIONS AT [facility] 12/13/19 AND SHE REACHED OUT TO YEN FRUIT OR NUT FARMWORKER RN AND DID GET AUTH FOR SKILLED REHAB ADMIT AND SET UP TIME FOR TRANSPORT AND INFORMED 4S RN. LATER IN DAY ERIBERTO NOTIFIED ME FACILITY UNABLE TO FIND STAFFING TO ACCOMODATE ADMISSION AND ARE UNABLE TO ACCEPT PT 12/13/19. 4S RN INFORMED BY PHONE. 4S CM UPDATED THIS AM.
[2019-12-14 10:16] LABS: ALBUMIN 2.3 g/dL (3.4-5.0); CALCIUM 7.8 mg/dL (8.5-10.1); CREATININE 1.7 mg/dL (0.7-1.3); PHOSPHORUS 2.9 mg/dL (2.5-4.9); POTASSIUM 3.5 mmol/L (3.5-5.1)
--- NOTE | 2019-12-14 11:02 | NUR ---
on-going assessment: CM REVIEWED CHART AND SPOKE WITH PATIENT WELL [facility]AS[facility] AT [facility]. CM SPOKE WITH ERIBERTO AT [facility] WHO REPORTS THEY RECEIVED INSURANCE AUTH OVER THE WEEKEND BUT HAD STAFFING ISSUES ON SATURDAY SO WERE UNABLE TO ACCEPT PATIENT UNTIL TODAY. PLANS ARE FOR PATIENT TO GO TO [facility] TODAY AND THEY HAVE INSURANCE AUTH. CM NOTIFIED PT AND BEDSIDE RN. CM FAXED DISCHARGE ORDERS TO [facility] AND CONFIRMED THEY RECEIVED THEM. CHART COPY WAS ORDERED AND DATE NIGHT CAREGIVER WAS NOTIFIED. TRANSPORTATION WAS ARRANGED FOR 10-1030 AM AND BEDSIDE RN NOTIFIED AND GIVEN THE NUMBER FOR REPORT. CM ALSO FAXED NEGATIVE COVID TEST AND [id number] FORM TO [facility]. PT REPORTS NO FURTHER NEEDS FROM . CASE CLOSED.
== END 2019-12-14 11:01 | disposition short-term general hospital (02) | DRG 682 ==
LOC: ER 11:57 → EROBS 14:26 → 4S 14:26
PROVIDERS: Emergency Medicine; Internal Medicine Nephrology; ADMIT Hospitalist; ATTEND Hospitalist
DX: N17.0 Acute kidney failure with tubular necrosis (principal); L89.313 Pressure ulcer of right buttock, stage 3; E43 Unspecified severe protein-calorie malnutrition; L97.929 Non-pressure chronic ulcer of unspecified part of left lower leg with unspecified severity; E11.649 Type 2 diabetes mellitus with hypoglycemia without coma; I10 Essential (primary) hypertension; E11.621 Type 2 diabetes mellitus with foot ulcer; Z20.828 Contact with and (suspected) exposure to other viral communicable diseases; N13.9 Obstructive and reflux uropathy, unspecified; Z68.31 Body mass index [BMI] 31.0-31.9, adult; Z79.4 Long term (current) use of insulin; Z89.612 Acquired absence of left leg above knee; Z79.899 Other long term (current) drug therapy

== ENCOUNTER 2019-12-18 13:43 | Inpatient (IN) | payer MEDICARE ==
[~2019-12-18] VITALS: Ht 177.8 cm; Wt 94.3 kg
[~2019-12-18 13:43] MED LIST changes: +FINASTERIDE5 MG PO; +LANTUS SUBQ; +MIDODRINE HCL 55 M1 PO
[2019-12-18 13:44] VITALS: BP 122/97
[2019-12-18 14:18] LABS: ABSOLUTE NEUTROPHILS 4.9 thou/uL (1.4-8.2); BASOPHILS 1.3 % (0.0-2.0); EOSINOPHILS 9.9 % (0.0-3.0); HEMATOCRIT 22.3 % (42.0-52.0); HEMOGLOBIN 7.5 gm/dL (14.0-18.0); LYMPHOCYTES 12.3 % (24.0-44.0); MCH 30.4 pg (26.0-34.0); MCHC 33.6 g/dL (28.0-37.0); MCV 90.5 fL (80.0-100.0); MONOCYTES 7.9 % (1.0-8.0); PLATELET COUNT 363 thou/uL (150-400); POLYS 68.6 % (36.0-66.0); RBC 2.46 mil/uL (4.50-6.00); RDW 15.7 % (10.5-14.5); WBC 7.1 thou/uL (4.0-11.0)
[2019-12-18 14:28] LABS: CALCIUM 7.9 mg/dL (8.5-10.1); CREATININE 1.6 mg/dL (0.7-1.3); POTASSIUM 3.2 mmol/L (3.5-5.1)
[2019-12-18 14:44] LABS: ALBUMIN 2.7 g/dL (3.4-5.0); MAGNESIUM 1.1 mg/dL (1.8-2.4); TOTAL BILIRUBIN 0.3 mg/dL (0.2-1.0); TOTAL PROTEIN 7.1 g/dL (6.4-8.2)
--- NOTE | 2019-12-18 15:13 | EKG ---
[facility] [place] [address] ELECTROCARDIOGRAM REPORT Name: MARZENA SELLERS [id number] Admission: 12/18/19 Attend Phys: Discharge: Date of : 48 Report #: [id number] THIS REPORT FOR: cc: YAMILEX [place] family physician/PCP YAMILEX - [place] family physician/PCP Cachorro Zheng MD [facility] ~ THIS REPORT FOR: //name// [facility] ED Test Date: 2019-12-18 Test Time: 14:32:03 Pat Name: MARZENA SELLERS Department: Room: Gender: M Medical Officer: Jen : 1950 Requested By: Miguel A Love Order Number: [id number] MD: Cachorro Zheng Measurements Intervals [place] Rate: 111 P: WV: QRS: -76 QRSD: 126 T: 86 QT: 397 QTc: 540 Interpretive Statements Suspect Atrial fibrillation/artifact Paired ventricular premature complexes Right bundle branch block Nonspecific T abnormalities, lateral leads Compared to ECG 06/18/2016 18:04:23 Ventricular premature complex(es) now present T-wave abnormality now present Sinus rhythm no longer present Electronically Signed On 12-18-2019 15:13:15 CDT by Cachorro Zheng [email or web address] <ELECTRONICALLY SIGNED> By: Cachorro Zheng MD, FACC 12/18/19 1513 [id number] [id number] Cachorro Zheng MD, FACC /EPI
[2019-12-18 15:29] LABS: URINE BILIRUBIN NEGATIVE (Negative); URINE BLOOD 1+ (Negative); URINE COLOR YELLOW; URINE GLUCOSE-RANDOM* NEGATIVE (Negative); URINE KETONES NEGATIVE (Negative); URINE NITRITE-REFLEX NEGATIVE (Negative); URINE PROTEIN (DIPSTICK) 2+ (Negative); URINE UROBILINOGEN 0.2 E.U./dl (0.2-1.0)
[2019-12-18 15:33] LABS: URINE CLARITY HAZY; URINE LEUKOCYTES-REFLEX 2+ (Negative)
[2019-12-18 15:43] LABS: BACTERIA-REFLEX 1-9 Few /HPF (None Seen); CASTS None Seen /LPF (None Seen); CRYSTALS None Seen /LPF (None Seen); SQUAMOUS None Seen /LPF (0-3); URINE RBC 3-10 Few /HPF (0-2); YEAST-REFLEX Present (None Seen)
--- NOTE | 2019-12-18 21:44 | NUR ---
FIRST ATTEMPT AT REPORT. NURSE OFF FLOOR
[2019-12-18 22:30] VITALS: BP 113/60; BP 131/60
--- NOTE | 2019-12-19 01:12 | NUR ---
ASSUMED CARE OF PT FROM ED AT 2220HRS. PT AOX4 AND LETS NEEDS BE KNOWN. FALL PRECAUTION IN PLACE. PT WAS ORIENTED TO HIS ROOM AND THE UNIT. PT PLACED ON TELE AND IS IN A CONTROLLED AFIB RHYTHM. PT HAS TREMMORS. SEIZURE PRECAUTION IN PLACE. PT CAME WITH A HALLMAN IN PLACE DUE TO RETENTION ISSUES. PT HAS WOUNDS IN RIGHT BUTTOCK AND RIGHT FOOT. PT HAS A LEFT AKA. ASSESSMENT CHARTED. PT DENIES PAIN, NAUSEA OR SOA. ORDERS RECEIVED AND STARTED. VSS AND NO S/S OF ACUTE DISTRESS. WILL CONTINUE TO MONITOR.
[2019-12-19 05:36] VITALS: BP 147/79
[2019-12-19 05:44] LABS: HEMATOCRIT 23.2 % (42.0-52.0); HEMOGLOBIN 7.5 gm/dL (14.0-18.0); MCH 29.3 pg (26.0-34.0); MCHC 32.1 g/dL (28.0-37.0); MCV 91.4 fL (80.0-100.0); RBC 2.54 mil/uL (4.50-6.00); RDW 15.7 % (10.5-14.5); WBC 6.2 thou/uL (4.0-11.0)
[2019-12-19 06:14] LABS: CALCIUM 8.1 mg/dL (8.5-10.1); CREATININE 1.4 mg/dL (0.7-1.3); POTASSIUM 3.7 mmol/L (3.5-5.1)
[2019-12-19 08:44] VITALS: BP 145/79
--- NOTE | 2019-12-19 12:07 | NUR ---
WAS NOTIFIED BY RN THAT PT IS REQUESTING TO TALK TO PROGRAM MANAGEMENT MANAGER SATURDAY HE DOES NOT WANT TO RETURN TO [facility] AT DISCHARGE WILL LEAVE MSG WITH PROGRAM MANAGEMENT MANAGER (LILIA).
--- NOTE | 2019-12-19 15:58 | NUR ---
ASSUMED CARE OF PT AT 0700. PT AOX4 PLEASANT IN NO ACUTE DISTRESS. VOICING NO CONCERNS AT THIS TIME OTHER THAN NOT WANTING TO RETURN TO [facility]. NEUROLOGICAL SYMPTOMS IMPROVING. EEG ORDERED. ISO PRECAUTIONS D/C'D BY ID. CORONADO.
[2019-12-19 17:51] VITALS: BP 140/73
[2019-12-19 19:47] VITALS: BP 155/74
[2019-12-19 20:00] VITALS: BP 147/68
[2019-12-20 06:22] LABS: CALCIUM 8.6 mg/dL (8.5-10.1); CREATININE 1.3 mg/dL (0.7-1.3); MAGNESIUM 1.7 mg/dL (1.8-2.4); POTASSIUM 3.7 mmol/L (3.5-5.1)
[2019-12-20 06:34] VITALS: BP 156/81
--- NOTE | 2019-12-20 06:49 | NUR ---
Pt. slept fair during the night. Afebrile , off enhanced precaution.Tolerating room air well.No active bleeding. Afib with controlled rate. Repositioned.Bed alarm on. Making propgress towards care plan goals.
[2019-12-20 08:30] VITALS: BP 147/72
--- NOTE | 2019-12-20 12:41 | NUR ---
PT CARE ASSUMED AT 0700, PT ALERT AND ORIENTED X4, DENIES ANY PAIN, NAUSEA AND VOMITTING. PT IS ON ROOM AIR, NO SIGNS OF DISTRESS NOTED. PT HAS HALLMAN IN PLACE, PATENT AND SECURED. PT COMPLAINS OF CONSTIPATION, MIRALAX AND PRUNE JUICE GIVEN. PT OFF ISOLATION, WAITING FOR MED/SURG BED. FALL PRECAUTION IN PLACE. BED AT LOWEST LEVELW WITH ALARM ON. WILL CONTINUE TO MONITOR
[2019-12-20 15:25] VITALS: BP 111/75
[2019-12-20 19:58] VITALS: BP 151/77
[2019-12-21 04:45] VITALS: BP 145/79
--- NOTE | 2019-12-21 07:28 | NUR ---
Pt. slept intermittently during the night. Able to reposition self on bed and calls appropriately if he needs help. Making progress towards care plan goals.
[2019-12-21 08:26] VITALS: BP 147/79
--- NOTE | 2019-12-21 10:39 | NUR ---
Assess due to RD consult received for pt with wounds. Pt just recently discharged last week. Readmit with electrolyte abnormalities. At that time, was not eating well, had 10 lb wt loss. This admission, eating 80-100% so far. Had stage III right buttock and right foot documented by wound care last admit, and wound care consult pending this admit. Hx DM, left AKA. Does not really care for oral supplements. Encouraged continue intake >75% with high protein food sources. If intake falls, then will readdress oral supplement. Low nutrition risk at this time.
--- NOTE | 2019-12-21 16:01 | NUR ---
INITIAL ASSESSMENT: Received consult. RENNY reviewed chart and spoke with nursing and attending physician. Pt was admitted from [facility]. Pt placed in Enhanced Isolation to r/o COVID-19. Pt had negative COVID test. Enhanced Isolation precautions have been discontinued. Per nursing, pt would like to go to another SNF when discharged. RENNY spoke with pt via phone. Introduced role of RENNY. Pt is alert/orientated x 4. Pt reports he normally lives at home alone. Pt has a scooter. Pt with hx of left AKA. Pt to have an MRI of his spine today. Pt states that he would like to return home with HH when discharged, instead of going to a SNF. Pt is in the process of hiring private duty staff. SW provided options for HH agencies. No preference voiced. RENNY confirmed pt's home address and phone number. Pt states his PCP is at the [facility]. He was recently assigned a new PCP. RENNY contacted [facility] and [facility], who both do not take pt's insurance. RENNY faxed face sheet to [facility] and notified HH liaison, who states they are able to accept pt's insurance. RENNY spoke with scheduling at [facility], who states pt is currently assigned to Dr. Margoth Falcon. RENNY received call from Ewelina from the [facility], who confirmed that Dr. Falcon is able to follow for HH orders. RENNY faxed HH referral to [facility] for review. RENNY is following to assist as needed with discharge planning.
--- NOTE | 2019-12-21 16:16 | NUR ---
assumed care of pt at 0700. pt alert and oriened in no acute distress. case mgmt working on placement and insurance auth. unable to do MRI per radiology since symptoms do not match admitting diagnosis. now waiting on placement.
[2019-12-21 18:45] VITALS: BP 121/60
--- NOTE | 2019-12-21 20:04 | NUR ---
Pt transferred from [facility] at shift changed; transferred to room safely. A+Ox4. On room air. Vital signs taken and recorded- stable. On carb controlled diet- tolerating well; no nausea, no vomiting and no abdominal pain noted. On blood sugar monitoring, taken and recorded accordingly. On telemetry; no complains and signs of chest pain, crushing sensation and heaviness. With lloyd in place- draining well; output measured and recorded accordingly. L BKA- stump fully healed- no dressing in place. With SL at R FA and L AC- intact, Possible discharge tomorrow- pt wanted to talk to , requested not to go back to [facility]- Night RN informed. With sore on his buttocks- turned on his sides; night RN informed, as per previous RN(from 3W) to apply Z guard to area- photo taken upon assessmend; wound care consult in 12/20. With healed and scabbed sore at R foot- shown to Night RN- ?photo. To continue monitoring patient.
--- NOTE | 2019-12-22 04:42 | NUR ---
Assumed pt care at 1900. A/OX4, VSS. Woundcare/pictures completed w/o any problems to buttocks&right foot. Pt declined to be repositioned stating he's able to reposition himself as needed. Pt a lloyd to DD draining hiren urine, incontinent of BM had a small BM @ HS indicated last regular BM was on 12/16 declined need for softners at this time indicating he had taken something in 3W. Pt has a old Left AKA,fall precautions in place calls approp for help. C/o penis pain medicated with Tylenol with relief reported. Resting quietly in bed at this time no distress noted will continue to monitor pt.
[2019-12-22 06:24] VITALS: BP 147/71
[2019-12-22 06:53] VITALS: BP 143/70
--- NOTE | 2019-12-22 09:26 | NUR ---
MRI WASN'T COMPLETED YESTERDAY. APPARENTLY PT IT TO HAVE IT COMPLETED TODAY. [facility] DECLINED TO ACCEPT PT FOR HH SERVICES UPON [place]HCARGE BUT [facility] CAN ACCEPT PT. CM TO FOLLOW INDICATED WITH DC PLANNING. OT DISCHARGED PT PT TO ASSESS AFTER MRI. ANTICIPATE PT DISCHARGING HOME WITH [facility] HH AND PD SERVICES. CM TO FOLLOW INDICATED WITH DC PLANNING.
--- NOTE | 2019-12-22 12:19 | NUR ---
ASSUMED PT CARE THIS AM. PT VITAL SIGNS STABLE, A&OX4. PT HALLMAN DISCONTINUED, PT VOIDED 180 OUT AFTER REMOVAL. IV INFILTRATED THIS AM, DANTE MADE AWARE AND OKAY'D PT NOT TO HAVE AN IV DUE TO POTENTIAL DISCHARGE TODAY. MRI SCHEDULED FOR THIS AFTERNOON. NO BM YET, BUT PT GIVEN MAG CITRATE. WILL CONTINUE TO MONITOR.
[2019-12-22 15:27] VITALS: BP 123/74
--- NOTE | 2019-12-22 18:41 | HC ---
[facility] [place] [address] CONSULTATION Name: MARZENA SELLERS Room #: 449-I ADM IN .R.#: [id number] Admission: 12/18/19 Attend Phys: French Childers MD Discharge: Date of : 48 Report #: [id number] THIS REPORT FOR: cc: FAM - No family physician/PCP FAM - No family physician/PCP Aguilar Smallwood MD ~ DATE OF SERVICE: 12/19/2019 HISTORY OF PRESENT ILLNESS: This is a 69-year-old male patient who was evaluated by me because he became tremulous. He said he was fully conscious. He just became tremulous when it happened. He was found to be low in potassium and magnesium and that was corrected, and his tremor has resolved. He never had this kind of episode before, and he was fully conscious during this episode. REVIEW OF SYSTEMS: Indicate that about 3 weeks ago, he said he had a urinary problem. He also said he had some increased problem in the right lower extremity. His left leg has an amputation. He indicated that is because of the diabetes. He also had multiple other smaller amputations in both lower extremities. He does have a history of neuropathy and what looks like postural hypotension. He had a PICC sepsis in 2007 as I understand from the record. A 14-point review of system is negative for stroke or any cardiac problem according to him. That was his relevant 14-point review of system. PAST MEDICAL HISTORY: Positive for diabetes. FAMILY HISTORY: Unremarkable. SOCIAL HISTORY: He denies use of nicotine. PHYSICAL EXAMINATION: Indicate he is alert, responsive, oriented. His speech looks intact and he says his memory and fund of knowledge is at baseline. Cranial nerve examination 2-12 looks unremarkable. His strength in the upper extremity looks preserved. Left side in the lower extremity, he has an amputation. In the right lower extremity, he can move against gravity and force. I do not know what his baseline is, but he is somewhat weaker there. He said his touch is altered. I am not sure about the position sense. His reflexes were absent. His plantar is mute. There is no carotid bruit in this patient. I could not look at the fundus. Cardiorespiratory examinations appear noncontributory. Blood pressure is 145/79, respirations 18, pulse is 81, and temperature is 97.9. LABORATORY DATA: White count is 6.2 and hemoglobin is only 7.5. His GFR is 50. He did have a CT scan of the head when he came in that showed atrophy, which is pretty pronounced, but is also showing chronic deep white matter ischemic [address] [address] CONSULTATION Name: MARZENA SELLERS Room #: 449-I ADM IN M.R.#: [id number] Admission: 12/18/19 Attend Phys: French Childers MD Discharge: Date of : 48 Report #: [id number] changes. IMPRESSION: The episode has resolved and the tremor was most likely because of electrolyte imbalances, especially magnesium. He is satisfied with that and does not want any other workup in that regard. He is concerned about the fact that he had urinary retention and he believes that his right leg became worse with that. His brother is an Infectious Disease doctor. He recommended checking his spine to make sure there is no pathology there. That is a reasonable request. He can have autonomic neuropathy causing bladder problem, but that is a diagnosis of exclusion. I asked him to check with his admitting doctor, and I think he has a reasonable request to do an MRI of the spine to make sure there is no pathology there. I do not do any spine, but that is a reasonable request and I will convey it to the admitting doctor and I told him to do the same thing and they can do that MRI of the spine on Saturday. If his symptoms come back, please call us back. Otherwise, if his symptoms continue to be controlled, then I do not think much need to be done, but this patient has pretty chronic problems going on in the brain and I put a PT, OT consult and if he does not do very well with them, then he may need some more workup from that perspective. Thank you very much for this referral. Addendum. This addendum is beING DICTATED AT THE TIME OF SIGNING THE NOTE> I HAD TALKED TO THE HOSPITALIST Dr Childers Yesterday and conveyed to her that the patient wanted her spine to be worked up and is a reasonable request and his spine should be worked up in conjunction with some spine physician or doing the MRI of the whole spine <ELECTRONICALLY SIGNED> By: Aguilar Smallwood MD 12/22/19 [id number] Aguilar Smallwood MD /nt
[2019-12-22 19:27] VITALS: BP 127/75
[2019-12-23 05:52] LABS: HEMATOCRIT 23.7 % (42.0-52.0); HEMOGLOBIN 7.8 gm/dL (14.0-18.0); MCH 29.6 pg (26.0-34.0); MCHC 32.8 g/dL (28.0-37.0); MCV 90.3 fL (80.0-100.0); RBC 2.63 mil/uL (4.50-6.00); RDW 16.3 % (10.5-14.5); WBC 7.3 thou/uL (4.0-11.0)
--- NOTE | 2019-12-23 06:40 | NUR ---
Pt. rested quietly at intervals during the night when checked on during frequent rounds. He drank his magnesium citrate and without a bowel move- ment during the shift. He offers no c/o pain. Mcmahan catheter was inserted without difficulty due to urinary retention (see poc).
[2019-12-23 06:47] LABS: CALCIUM 8.9 mg/dL (8.5-10.1); CREATININE 1.7 mg/dL (0.7-1.3); MAGNESIUM 1.8 mg/dL (1.8-2.4); POTASSIUM 4.3 mmol/L (3.5-5.1)
[2019-12-23 06:49] LABS: ABSOLUTE RETIC COUNT 0.0899 10^6/uL; OBSERVED RETIC COUNT 3.36 % (0.6-2.6)
[2019-12-23 06:52] LABS: FERRITIN 861 ng/mL (26-388)
[2019-12-23 07:24] VITALS: BP 133/60
[2019-12-23 07:36] LABS: % SATURATION 11 % (20-39); IRON 34 ug/dL (65-175); TIBC 299 ug/dL (250-450)
[2019-12-23] MEDS ORDERED: MAGNESIUM250 M1 PO (09:18)
[2019-12-23] MEDS ORDERED: FLOMAX0.4 MG PO (09:18)
[2019-12-23 09:20] VITALS: BP 133/60
--- NOTE | 2019-12-23 09:56 | NUR ---
PT HAD MRI DONE YESTERDAY. CARE TEAM INDICATED THAT PT IS MEDICALLY STABLE TO DISCHARGE HOME THIS DAY WITH HH AND PD SERVICES PER PT'S PREFERENCE. [facility] IS ACCEPTING OF PT FOR HH SERVICES. ORDERS FAXED TO THEM. CM PROVIDED PT WITH LIST OF PD PROVIDERS FOR REFERENCE. PT INDICATED HIS BROTHER IN LAW WILL PICK HIM UP WITH IS POWER SCOOTER AND NEW WC VAN. NO OTHER CM INTERVENTION INDICATED. CASE CLOSED.
[2019-12-23 10:31] VITALS: BP 133/60
--- NOTE | 2019-12-23 12:03 | EEG ---
[facility] [place] [place] [address] ELECTROENCEPHALOGRAM Name: MARZENA SELLERS Room #: 449-I ADM IN M.R.#: [id number] Admission: 12/18/19 Attend Phys: French Childers MD Discharge: Date of : 48 Report #: [id number] THIS REPORT FOR: //name// CC: French Childers [facility] physician/PCP DATE OF SERVICE: 12/19/2019 This patient is being evaluated for tremor. EEG is being done to evaluate the possibility of seizure. EEG was done by placing the electrode by standard 10-20 system of electrode placement. Both referential and sequential montages were used for recording. Background activity in this patient's EEG is about 9-10 Hz and 30 microvolt. The patient went to sleep that is associated with bilateral slowing and vertex sharp waves. Photic stimulation is unremarkable. Throughout the record, no active epileptiform activity was noticed. IMPRESSION: This patient's EEG was unremarkable and did not reveal any definite epileptiform activity. Thank you very much for this referral. <ELECTRONICALLY SIGNED> By: Aguilar Smallwood MD 12/23/19 1203 [id number] Aguilar Smallwood MD /nt
[2019-12-23 15:09] VITALS: BP 118/63
--- NOTE | 2019-12-23 15:59 | NUR ---
PT DISCHARGING TODAY TO HOME WITH [facility] HH FAXED DC ORDERS/SUMMRY SPOKE WITH DANIELA IN INTAKE SHE RECEIVED ORDERS AND WILL CALL PT TO ARRANGE VISITS.
--- NOTE | 2019-12-23 18:16 | NUR ---
PT A&OX4, VSS, DENIES PAIN. WOUND CARE COMPLETED, PHOTOS TAKEN. PATIENT HAD LARGE BM AFTER ENEMA TODAY. PATIENT REPOSITIONED OFTEN. PATIENT DISCHARGED HOME WITH HOMEHEALTH. ALL BELONGINGS WITH PATIENT, IV REMOVED. NO SIGNS OF DISTRESS AT DISCHARGE.
--- NOTE | 2019-12-30 15:39 | HC ---
[facility] [place] [address] CONSULTATION Name: MARZENA SELLERS Room #: 449-I [facility] IN M.R.#: [id number] Admission: 12/18/19 Attend Phys: French Childers MD Discharge: 12/23/19 Date of : 48 Report #: [id number] THIS REPORT FOR: cc: FAM - No family physician/PCP FAM - No family physician/PCP Mino Morrow MD ~ DATE OF SERVICE: 12/21/2019 CHIEF COMPLAINT: Ulceration of the right first toe and right lateral ankle and sacrum. HISTORY OF PRESENT ILLNESS: This is a 69-year-old male patient admitted to the hospital on 12/18/2019. He has a history of type 2 diabetes mellitus, history of osteomyelitis of his right ankle, status post a previous incision and drainage as well as a left above-knee amputation. He was admitted with uncontrolled twitching and trembling. There is some question of seizure issue. I have been asked to see him with regard to wound care. 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 SOCIAL HISTORY: Positive for some alcohol use, never for tobacco or recreational drug use. FAMILY HISTORY: Noncontributory. MEDICATIONS: Include amlodipine, hydrocodone, insulin, fenofibrate, simvastatin, finasteride. ALLERGIES: No known drug allergies. FAMILY HISTORY: Noncontributory. REVIEW OF SYSTEMS: CONSTITUTIONAL: The patient denies fever, chills or weight loss. NEUROLOGICAL: The patient denies focal weakness, numbness or tingling. EYES: The patient denies visual changes, redness or drainage. ENT: The patient denies earache, nasal drainage or sore throat. CARDIOVASCULAR: The patient denies chest pain, palpitations or diaphoresis. PULMONARY: Positive cough and shortness of breath. GASTROINTESTINAL: The patient denies nausea, vomiting, diarrhea or abdominal [facility] [address] [place] [address] CONSULTATION Name: MARZENA SELLERS Room #: 449-I [facility] IN [facility]#: [id number] Admission: 12/18/19 Attend Phys: French Childers MD Discharge: 12/23/19 Date of : 48 Report #: [id number] pain. ORTHOPEDIC: The patient has ulceration to the sacral-gluteal region as well as the right ankle and toe. Other systems in a 14-point review of systems are negative. PHYSICAL EXAMINATION: VITAL SIGNS: At this time include temperature 36.5, pulse 81, respiratory rate 18, blood pressure 147/79. GENERAL: This is a chronically ill-appearing male patient who appears to be in no distress. HEENT: Head is normocephalic. Nose and throat clear. NECK: Supple. LUNGS: Diminished. HEART: Regular rhythm. ABDOMEN: Soft, bowel sounds present. EXTREMITIES: Examination of the lower extremities demonstrates a left above-knee amputation. He has a small ulceration of the right lateral ankle as well as an ulceration of the right first toe. This area is able to be cleansed fairly well and some dry crusting has peeled away revealing some intact epithelium. He has a stage 3 pressure ulceration to the right buttock and sacral region. These are relatively superficial. NEUROLOGIC: The patient is alert and does seem to move all 4 extremities spontaneously. LABORATORY DATA: Includes sodium 142, potassium 3.7, chloride 107, CO2 of 24, BUN 12, creatinine 1.3, albumin is 2.7. White blood cell count 6.2 with a hemoglobin of 7.5. CLINICAL IMPRESSION: 1. Diabetic ulceration to the right lateral ankle and right first toe. 2. Stage 3 pressure ulceration to the right buttock and sacral region. 3. Status post left above-knee amputation, well healed. 4. Type 2 diabetes mellitus. 5. Moderate to severe protein-calorie malnutrition, albumin of 2.7. RECOMMENDATIONS: At this point, I will recommend Calazime barrier cream to the buttocks and sacral region b.i.d. and p.r.n. He will need low air loss mattress, q. 2 hours turning and positioning. Recommended border foam dressing to the right lateral ankle and Betadine to the right great toe daily. Continuation of all his medications. Maximize protein for wound healing. [address] [address] CONSULTATION Name: MARZENA SELLERS Room #: 449-I DIS IN M.R.#: [id number] Admission: 12/18/19 Attend Phys: French Childers MD Discharge: 12/23/19 Date of : 48 Report #: [id number] I appreciate being asked to see the patient in consultation. <ELECTRONICALLY SIGNED> By: Mino Morrow MD 12/30/19 1539 [id number] Mino Morrow MD /nt
== END 2019-12-23 16:50 | disposition home health service (06) | DRG 640 ==
LOC: ER 13:43 → 3W 20:21 → EROBS 20:21 → 3W 22:18 → 4W 12-21 18:08
PROVIDERS: Emergency Medicine; Nurse Practitioner Family; ADMIT Hospitalist; ATTEND Hospitalist
DX: E83.42 Hypomagnesemia (principal); L89.313 Pressure ulcer of right buttock, stage 3; L89.153 Pressure ulcer of sacral region, stage 3; E43 Unspecified severe protein-calorie malnutrition; N17.0 Acute kidney failure with tubular necrosis; N39.0 Urinary tract infection, site not specified; L97.319 Non-pressure chronic ulcer of right ankle with unspecified severity; R33.9 Retention of urine, unspecified; N13.9 Obstructive and reflux uropathy, unspecified; Z20.828 Contact with and (suspected) exposure to other viral communicable diseases; E11.42 Type 2 diabetes mellitus with diabetic polyneuropathy; I10 Essential (primary) hypertension; E83.51 Hypocalcemia; E87.6 Hypokalemia; D64.9 Anemia, unspecified; E78.5 Hyperlipidemia, unspecified; L97.519 Non-pressure chronic ulcer of other part of right foot with unspecified severity; G25.0 Essential tremor; M19.90 Unspecified osteoarthritis, unspecified site; G47.00 Insomnia, unspecified; Z79.899 Other long term (current) drug therapy; Z89.412 Acquired absence of left great toe
CPT/HCPCS: 10040; 10045; 10879